=== PATIENT | female | born 1960 | race Caucasian/White ===

== ENCOUNTER 2019-01-15 07:21 | Day surgery (SDC) | payer MEDICAID ==
[2019-01-15] VITALS (10 sets, daily range): BP systolic 142–185; BP diastolic 84–100
[~2019-01-15] VITALS: Ht 162.6 cm; Wt 176.3 kg
[~2019-01-15 07:21] MED LIST: ASPI-611 PO; ATOR40TA71 PO; DICL50TA6 PO; GABA800T11 PO; HYDR25TA4 PO; INSU100V12 SQ; INSU100V36 SQ; LISI-604 PO; METO-539 PO
[2019-01-15] MEDS ORDERED: diphenhydrAMINE 25mg capsule PO PRN (07:50)
[2019-01-15] MEDS ORDERED: normal saline 1,000 ML IV SCH (07:50)
[2019-01-15 08:20] LABS: BASOPHILS # (AUTO) 0.1 X10'3 (0-0.2); BASOPHILS % (AUTO) 0.7 % (0-1); EOSINOPHILS # (AUTO) 0.2 X10'3 (0-0.9); EOSINOPHILS % (AUTO) 2.7 % (0-6); HEMOGLOBIN 15.3 g/dl (12.0-16.0); LYMPHOCYTES # (AUTO) 1.6 X10'3 (1.1-4.8); LYMPHOCYTES % (AUTO) 19.5 % (21-51); MEAN CORPUSCULAR HEMOGLOBIN 30.2 PG (27.0-31.0); MEAN CORPUSCULAR HGB CONC 32.5 g/dL (33.0-36.5); MEAN CORPUSCULAR VOLUME 93.1 FL (78-98); MEAN PLATELET VOLUME 9.4 FL (7.4-10.4); MONOCYTES # (AUTO) 0.6 X10'3 (0-0.9); MONOCYTES % (AUTO) 6.9 % (2-12); NEUTROPHILS # (AUTO) 5.9 X10'3 (1.8-7.7); NEUTROPHILS % (AUTO) 70.2 % (42-75); PLATELET COUNT 213 X10'3 (140-440); RED BLOOD COUNT 5.05 X10'6 (4.20-5.60); RED CELL DISTRIBUTION WIDTH 15.6 % (11.5-14.5); WHITE BLOOD COUNT 8.4 X10'3 (4.5-11.0)
[2019-01-15 08:24] LABS: ANION GAP 4 (8-16); BLOOD UREA NITROGEN 15 MG/DL (7-18); BUN/CREATININE RATIO 11.9 (6.6-38.0); CALCIUM 9.3 MG/DL (8.5-10.1); CHLORIDE 98 MMOL/L (99-107); CREATININE 1.26 MG/DL (0.40-0.90); GLUCOSE 404 MG/DL (70-104); MAGNESIUM 1.8 MG/DL (1.5-2.4); POTASSIUM 3.9 MMOL/L (3.5-5.1); SODIUM 136 MMOL/L (135-145); TOTAL CARBON DIOXIDE 34.3 MMOL/L (24-32); eGFR 44 ML/MIN
[2019-01-15] MEDS ORDERED: INSU100I31 SQ (08:28)
[2019-01-15] MEDS ORDERED: BECL7.3A INH (08:28)
[2019-01-15] MEDS ORDERED: POTA10TA19 PO (08:28)
[2019-01-15] MEDS ORDERED: NITR0.4T51 SL (08:28)
[2019-01-15] MEDS ORDERED: FURO40TA4 PO (08:28)
[2019-01-15] MEDS ORDERED: LEVO25TA2 PO (08:28)
[2019-01-15] MEDS ORDERED: AMIT-189 PO (08:28)
[2019-01-15] MEDS ORDERED: nystatin TOP (08:28)
[2019-01-15] MEDS ORDERED: MAGN400C PO (08:28)
[2019-01-15] MEDS ORDERED: GUAI600T45 PO (08:28)
[2019-01-15] MEDS ORDERED: ALB0.5UD IH (08:28)
[2019-01-15] MEDS ORDERED: LIDOcaine/PRILOcaine 5gm cream TP ONE (08:30)
[2019-01-15] MEDS ORDERED: nitroGLYCERIN-Tridil 50MG/D5W 250 ML IV ONE (08:37)
[2019-01-15] MEDS ORDERED: midazolam 2 mg/2 ml injection ONE (08:37)
[2019-01-15] MEDS ORDERED: verapamil 2.5 mg/ml inj IV ONE (08:37)
[2019-01-15] MEDS ORDERED: fentaNYL/PF 50MCG/1 ML 2ML syringe ONE (08:38)
[2019-01-15] MEDS ORDERED: heparin 1,000unit/ml 10ml vial 10 ML ONE (08:38)
[2019-01-15] MEDS ORDERED: iohexol 350 MG/ML 50ML vial IV ONE ×2 (08:38→09:37)
[2019-01-15] MEDS ORDERED: LIDOcaine 1% (10mg/ml)w/preservative injection 20ml MDV ONE (08:38)
[2019-01-15] MEDS ORDERED: iohexol 350MG/ML 100ml bottle IV ONE (08:38)
[2019-01-15] MEDS ORDERED: insulin regular, human 10 units/0.1 ml syringe SQ ONE (09:00)
--- NOTE | 2019-01-15 10:00 | NUR ---
WHILE PT WAS IN PROCEDURE PHARMACY DELIVERED INSULIN ORDERED TO THE [facility], UPON ARRIVAL BACK TO [facility] IT WAS NOTED THAT THE MEDICATION HAD NOT BEEN ADMINISTERED AND WAS PLACED INSIDE OF THE PT CHART, IT WAS ALSO NOTED THAT THE ORDER HAD BEEN PUT INTO EMR SQ (THE MD ORDERED IV)-PHARMACY WAS CALLED AND THE ORDER WAS AMENDED. AT THIS TIME AN ADDITIONAL BEDSIDE GLUCOSE WAS PERFORMED AND THE ORDERED 15U WAS ADMINISTERED VIA PIV. Addendum: 01/15/19 at 1243 by Peace Cortez RN Amended: Links added.
[2019-01-15] MEDS ORDERED: insulin regular, human 10 units/0.1 ml syringe IV ONE (10:25)
--- NOTE | 2019-01-15 13:15 | NUR ---
COMPRESSION BAND REMOVED-STERILE 2X2 WITH OCCLUSIVE DRESSING APPLIED FOLLOWED BY 4X4 W/COBAN PRESSURE DRESSING-SITE FREE FROM DRAINAGE/SWELLING-MILD BRUISING NOTED AROUND THE BAND PERIMETER-PT STATED IT WAS TENDER TO TOUCH. Addendum: 01/15/19 at 1529 by Peace Cortez RN Amended: Links added.
== END 2019-01-15 14:15 | disposition home or self-care (01) ==
LOC: SSTAY O 07:21
PROVIDERS: ATTEND Internal Medicine Cardiovascular Disease
DX: I25.10 Atherosclerotic heart disease of native coronary artery without angina pectoris (principal); E78.5 Hyperlipidemia, unspecified; F17.200 Nicotine dependence, unspecified, uncomplicated; J96.10 Chronic respiratory failure, unspecified whether with hypoxia or hypercapnia; J44.9 Chronic obstructive pulmonary disease, unspecified; I50.32 Chronic diastolic (congestive) heart failure; I11.0 Hypertensive heart disease with heart failure; I27.20 Pulmonary hypertension, unspecified; G47.30 Sleep apnea, unspecified; E03.9 Hypothyroidism, unspecified; E66.01 Morbid (severe) obesity due to excess calories; E11.40 Type 2 diabetes mellitus with diabetic neuropathy, unspecified; Z87.440 Personal history of urinary (tract) infections; Z86.73 Personal history of transient ischemic attack (TIA), and cerebral infarction without residual deficits; Z98.890 Other specified postprocedural states; Z68.44 Body mass index [BMI] 60.0-69.9, adult
CPT/HCPCS: 36415; 80048; 82948; 83735; 85025; 85610; 93005; 93458; 99152; 99153; C1769; J1644; J2001; J2250; J3010; J7030; Q0163; Q9967; A4620; J1815; J3490